=== PATIENT | female | born 1940 | race Caucasian/White ===

== ENCOUNTER 2020-09-14 17:35 | Observation (INO) ==
[2020-09-14 18:59] LABS: Basophils % 0.3 % (0.0-0.8); Eosinophils # 0.2 10*3/uL (0.0-0.87); Eosinophils % 3.2 % (0.00-10.9); Hematocrit 25.5 VOL% (35.7-47.0); Immature Granulocytes % 1.2 %; Immature Granulocytes Absolute 0.08 #; Lymphocytes # 1.2 10*3/uL (1.4-4.0); Lymphocytes % 17.7 % (21.3-54.2); Mean Corpuscular HGB Conc 31.4 GM/DL (32-36); Mean Platelet Volume 10.2 FL (9.6-12.0); Monocytes % 10.2 % (1.7-12.7); Neutrophils % 67.4 % (38.7-73.9); Platelet Count 165 T/CUMM (130-400); Red Cell Distribution Width 13.5 % (9.3-17.3); White Blood Count 6.6 T/CUMM (4-12)
[2020-09-14] MEDS ORDERED: LEVALBUTEROL 0.63 MG/3 ML NEB RESP TX STA (19:01)
[2020-09-14 19:47] LABS: Bilirubin,Total 0.5 MG/DL (0.2-1.0); Free T4 (Free Thyroxine) 1.56 NG/DL (0.76-1.46); Osmolality,Calculated 276.7 MOS/KG (273-304); Potassium 3.5 MMOL/L (3.5-5.1); Thyroid Stimulating Hormone 1.94 uIU/ml (0.358-3.74); Total Protein 6.7 G/DL (6.4-8.9)
[2020-09-14] MEDS ORDERED: ZALEPLON 5 MG CAPSULE PO PRN (19:54)
[2020-09-14] MEDS ORDERED: ONDANSETRON 4 MG/2 ML VIAL IV PRN (19:54)
[2020-09-14] MEDS ORDERED: LEVALBUTEROL 0.31 MG/3 ML NEB RESP TX PRN (19:56)
[2020-09-14] MEDS ORDERED: SODIUM CHLORIDE 0.9% 1,000 ML IV SCH (20:00)
[2020-09-14 20:07] LABS: Bilirubin,Urine Negative (Negative); Blood, Urine Small mg/dL (Negative); Glucose,Urine (UA) Negative (Negative); Hyaline Casts,Urine 3 /LPF (0-3); Ketones,Urine Negative (Negative); Mucus,Urine Occasional /LPF (Occasional); Nitrite,Urine Negative (Negative); Protein,Urine Negative; RBC,Urine 6 /HPF (0-4); Squamous Epithelial Cell,Urine Occasional /HPF (0-10); Urine Appearance CLEAR (Clear); Urine Color Yellow (Yellow); Urine Specific Gravity 1.012 (1.001-1.035); Urine Urobilinogen < 2.0 EU/DL (0.2-1.0); WBC,Urine 3 /HPF (0-6)
[2020-09-14] MEDS ORDERED: AMITRIPTYLINE 25 MG TABLET PO SCH (21:00)
[2020-09-14] MEDS: ALPRAZolam 0.25 MG TABLET PO SCH (23:57)
[2020-09-15] MEDS: APIXABAN 2.5 MG TABLET PO SCH ×2 (00:02→09:03)
[2020-09-15 01:49] LABS: Basophils % 0.3 % (0.0-0.8); Eosinophils # 0.2 10*3/uL (0.0-0.87); Hematocrit 23.4 VOL% (35.7-47.0); Hemoglobin 7.7 GM/DL (12.0-16.0); Immature Granulocytes % 0.8 %; Immature Granulocytes Absolute 0.05 #; Lymphocytes # 1.2 10*3/uL (1.4-4.0); Lymphocytes % 19.5 % (21.3-54.2); Mean Corpuscular HGB Conc 32.9 GM/DL (32-36); Mean Corpuscular Volume 99.6 FL (87-102); Mean Platelet Volume 9.9 FL (9.6-12.0); Monocytes % 11.1 % (1.7-12.7); Neutrophils % 65.3 % (38.7-73.9); Platelet Count 152 T/CUMM (130-400); Red Blood Count 2.35 MC/CUMM (3.8-5.5); Red Cell Distribution Width 13.6 % (9.3-17.3); White Blood Count 6.1 T/CUMM (4-12)
[2020-09-15 02:19] LABS: Calcium 7.9 MG/DL (8.5-10.1); Potassium 3.4 MMOL/L (3.5-5.1)
[2020-09-15] MEDS ORDERED: MAGNESIUM SULF RIDER 2 GM in PREMIX 1 EACH IV ONE (06:47)
[2020-09-15] MEDS ORDERED: MAGNESIUM SULF RIDER 1 GM in PREMIX 1 EACH IV ONE (06:48)
[2020-09-15] MEDS ORDERED: LEVOTHYROXINE 50 MCG TABLET PO SCH (07:00)
[2020-09-15 08:24] VITALS: BP 134/60
[2020-09-15] MEDS ORDERED: PANTOPRAZOLE 40 MG TABLET PO SCH (09:00)
[2020-09-15] MEDS ORDERED: PERPHENAZINE 2 MG TABLET PO SCH ×2 (09:00)
[2020-09-15] MEDS ORDERED: POTASSIUM CHLORIDE 20 MEQ TABLET PO SCH (09:00)
[2020-09-15] MEDS ORDERED: AMIODARONE 200 MG TABLET PO SCH (09:00)
[2020-09-15] MEDS ORDERED: FAMOTIDINE 20 MG TABLET PO SCH (09:00)
[2020-09-15] MEDS ORDERED: AMITRIPTYLINE 25 MG TABLET PO SCH (09:00)
[2020-09-15] MEDS ORDERED: OLMESARTAN 20 MG TABLET PO SCH (09:00)
[2020-09-15] MEDS ORDERED: LEVOFLOXACIN 250 MG TABLET PO SCH (09:00)
[2020-09-15] MEDS ORDERED: CYANOCOBALAMIN 1000 MCG/1 ML VIAL SUBCUT SCH (09:00)
[2020-09-15] MEDS ORDERED: FOLIC ACID 1 MG TABLET PO SCH (09:00)
[2020-09-15] MEDS: ALPRAZolam 0.25 MG TABLET PO SCH (09:01)
[2020-09-15] MEDS: METOPROLOL TARTRATE 25 MG TABLET PO SCH ×2 (09:02)
== END 2020-09-15 10:34 | disposition home or self-care (01) ==
LOC: N.ED 17:35 → N.EDINP 17:35 → N.TELEN 21:57
PROVIDERS: ADMIT Internal Medicine Cardiovascular Disease; ATTEND Internal Medicine Cardiovascular Disease